=== PATIENT | male | born 1950 | race Caucasian/White ===

== ENCOUNTER 2016-11-29 21:16 | Emergency (ER) | payer OTHER ==
[~2016-11-29 21:16] MED LIST: ALLOPURINOL100 MG PO; INDOMETHACIN25 MG PO; LEVOFLOXACIN500 MG PO; LISINOPRIL-HCT1 EAC2 PO; PIOGLITAZONE HC15 MG PO; TAMSULOSIN HCL0.4 MG PO
[2016-11-29 21:46] LABS: URINE BILIRUBIN NEGATIVE (NEGATIVE); URINE BLOOD TRACE (NEGATIVE); URINE GLUCOSE (UA) NORMAL (NORMAL); URINE KETONE NEGATIVE (NEGATIVE); URINE LEUKOCYTE ESTERASE 2+ (NEGATIVE); URINE NITRATE NEGATIVE (NEGATIVE); URINE PROTEIN NEGATIVE (NEGATIVE); UROBILINOGEN NORMAL mg/dL (<1.0)
[2016-11-29 22:00] LABS: URINE BACTERIA 1+ (NONE SEEN); URINE RBC 0-5 /[HPF] (0-2); URINE WBC >15 /[HPF] (0-3)
== END 2016-11-29 22:18 | disposition home or self-care (01) ==
LOC: ER 21:16
PROVIDERS: Internal Medicine
DX: T83.098A Other mechanical complication of other urinary catheter, initial encounter (principal); N39.0 Urinary tract infection, site not specified; I10 Essential (primary) hypertension; E11.9 Type 2 diabetes mellitus without complications; M10.9 Gout, unspecified; Z98.890 Other specified postprocedural states; Z88.0 Allergy status to penicillin; Z79.899 Other long term (current) drug therapy; Z79.1 Long term (current) use of non-steroidal anti-inflammatories (NSAID)
CPT/HCPCS: 81001; 87086; 87186; 99070; 99283